=== PATIENT | female | born 1960 | race Caucasian/White ===

== ENCOUNTER 2016-09-04 04:59 | Emergency (ER) | payer MEDICAID ==
[2016-09-04 05:14] VITALS: TEMP 98.9
[2016-09-04] MEDS ORDERED: AZITHROMYCIN 500 MG TAB PO STA (05:26)
[2016-09-04] MEDS ORDERED: BENZONATATE 100 MG CAP PO STA (05:26)
--- NOTE | 2016-09-04 05:29 | ED ---
General Adult HPI - General Chief complaint: Upper Respiratory Infection Stated complaint: coughing Time Seen by Provider: 09/04/16 05:10 Source: patient, RN notes reviewed Mode of arrival: ambulatory Limitations: no limitations - History of Present Illness Initial comments: Is a 55-year-old female this is a 55-year-old female who comes in complaining of a cough for the last 4 days. Patient states she's also had quite a sore throat since she's been coughing. Patient states the sore throat gets worse in the morning when she wakes up and gets better throughout the day. Patient states she has felt warm but has not taken her temperature. Patient denies any chills. Patient denies any shortness of breath or difficulty breathing. Patient states when she coughs it hurts her ribs. Patient denies any chest pain while coughing. Patient denies any abdominal pain patient denies nausea vomiting diarrhea. Patient denies headache patient denies numbness weakness. Patient denies any lightheadedness or dizziness. - Related Data Home Medications Medication Instructions Recorded Confirmed Acetaminophen Tab [Tylenol Tab] 500 mg PO Q4H PRN 09/04/16 09/04/16 Previous Rx's Medication Instructions Recorded Azithromycin [Zithromax Tri-Narendra] 500 mg PO DAILY #3 tab 09/04/16 Benzonatate [Tessalon Perles] 200 mg PO TID #12 capsule 09/04/16 Allergies Allergy/AdvReac Type Severity Reaction Status Date / Time pollen extracts Allergy Unknown Verified 09/04/16 05:15 Review of Systems ROS Statement: Those systems with pertinent positive or pertinent negative responses have been documented in the HPI. ROS Other: All systems not noted in ROS Statement are negative. Past Medical History Past Medical History: Hypertension History of Any Multi-Drug Resistant Organisms: None Reported Past Surgical History: Hysterectomy Past Psychological History: No Psychological Hx Reported Smoking Status: Former smoker Past Alcohol Use History: None Reported Past Drug Use History: None Reported General Exam - General Exam Comments Initial Comments: GENERAL: Patient is well-developed and well-nourished. Patient is nontoxic and well- hydrated and is in mild distress. ENT: Neck is soft and supple. No significant lymphadenopathy is noted. Oropharynx is clear. Moist mucous membranes. Neck has full range of motion without eliciting any pain. EYES: The sclera were anicteric and conjunctiva were pink and moist. Extraocular movements were intact and pupils were equal round and reactive to light. Eyelids were unremarkable. PULMONARY: Unlabored respirations. Good breath sounds bilaterally. No audible rales rhonchi or wheezing was noted. CARDIOVASCULAR: There is a regular rate and rhythm without any murmurs gallops or rubs. ABDOMEN: Soft and nontender with normal bowel sounds. No palpable organomegaly was noted. There is no palpable pulsatile mass. SKIN: Skin is clear with no lesions or rashes and otherwise unremarkable. NEUROLOGIC: Patient is alert and oriented x3. Cranial nerves II through XII are grossly intact. Motor and sensory are also intact. Normal speech, volume and content. Symmetrical smile. MUSCULOSKELETAL: Normal extremities with adequate strength and full range of motion. No lower extremity swelling or edema. No calf tenderness. LYMPHATICS: No significant lymphadenopathy is noted PSYCHIATRIC: Normal psychiatric evaluation. Limitations: no limitations Course Vital Signs 09/04/16 05:09 Temperature 98.9 F Pulse Rate 86 Respiratory 18 Rate Blood Pressure 188/90 O2 Sat by Pulse 96 Oximetry Disposition Clinical Impression: Acute bronchitis Disposition: HOME SELF-CARE Condition: Good Instructions: Acute Bronchitis (ED) Prescriptions: Azithromycin [Zithromax Tri-Narendra] 500 mg PO DAILY #3 tab Benzonatate [Tessalon Perles] 200 mg PO TID #12 capsule Time of Disposition: 05:28
[2016-09-04 05:44] VITALS: BP 158/79; PULSE 77; RESP 16
== END 2016-09-04 05:43 | disposition home or self-care (01) ==
LOC: EC 04:59
DX: J20.9 Acute bronchitis, unspecified (principal); Z91.048 Other nonmedicinal substance allergy status; Z87.891 Personal history of nicotine dependence
CPT/HCPCS: 99283

== ENCOUNTER 2016-10-22 07:44 | Day surgery (SDC) | payer MEDICAID ==
[2016-10-17 15:42] VITALS: BMI 30.1
[~2016-10-22 07:44] MED LIST: LACTATED RINGERS 1,000 ML IV SCH
[2016-10-22 08:08] VITALS: PULSE 59; RESP 16; TEMP 97.8
[2016-10-22 08:09] VITALS: BP 228/100
--- NOTE | 2016-10-22 13:57 | P.PN ---
Progress Note - Text Patient's blood pressure in preop area was 243 systolic and 238 on recheck on other arm. As procedure is not emergent, will cancel procedure for today and have patient follow up with PCP for further evaluation and BP management prior to re-attempting.
== END 2016-10-22 08:26 | disposition home or self-care (01) ==
LOC: ORPAIN 07:44
PROVIDERS: ATTEND Anesthesiology
DX: H47.10 Unspecified papilledema (principal); R03.0 Elevated blood-pressure reading, without diagnosis of hypertension; Z53.8 Procedure and treatment not carried out for other reasons

== ENCOUNTER → 2016-10-24 | Outpatient (CLI) | payer MEDICAID ==
[2016-10-24 10:39] LABS: Blood Urea Nitrogen 19 mg/dL (7-17); Non-African American GFR(MDRD) >60 (>60 ml/min/1.73 sqM)
--- NOTE | 2016-10-24 21:06 | MR ---
EXAMINATION TYPE: MR brain wo/w con DATE OF EXAM: 10/24/2016 4:22 PM COMPARISON: NONE HISTORY: 56-year-old female, unspecified papilledema, blurred vision, vision disturbance TECHNIQUE: Multiplanar, multisequence images of the brain and brainstem were acquired before and aft er administration of 14 mL IV MultiHance. Diffusion weighted imaging is performed. FINDINGS: No evidence for acute infarction, hemorrhage, mass, mass effect, midline shift, herniation, effacemen t of basal cisterns, or extra-axial fluid collection. The ventricles and sulci are age-appropriate. Major intracranial flow voids are intact. T2/FLAIR weighted sequences show minimal to mild scattered burden of right white matter change in the subcortical and deep white matter of both cerebral hemispheres and brain approximately 10-15 foci. Midline structures demonstrate normal morphology. There is no empty sella. The craniocervical junctio n is normal. Post contrast images demonstrate no evidence of mass. Dural venous sinuses are patent. There is no ab normal meningeal enhancement. Mild mucosal thickening in the ethmoid air cells. Globes are intact. There is no appreciable bulging or flattening of the optic nerve head. IMPRESSION: 1. No acute intracranial abnormality seen. Minimal to mild scattered burden of T2 bright white matter change, nonspecific, likely related to chronic small vessel ischemic disease. 2. No appreciable flattening or bulging of the optic nerve head on MRI. 3. No specific finding to help explain clinical papilledema. 4. Mild chronic ethmoid sinus disease.
== END | disposition home or self-care (01) ==
LOC: RADMRIMAIN 15:33
PROVIDERS: ATTEND Ophthalmology
DX: R90.82 White matter disease, unspecified (principal); H47.10 Unspecified papilledema; H53.9 Unspecified visual disturbance; H53.8 Other visual disturbances; R93.0 Abnormal findings on diagnostic imaging of skull and head, not elsewhere classified
CPT/HCPCS: 82565; 84520; 70553; 36415; A9577

== ENCOUNTER 2017-11-22 07:52 | Day surgery (SDC) | payer MEDICAID ==
[2017-11-22 08:46] VITALS: TEMP 97.6
--- NOTE | 2017-11-22 11:19 | FL ---
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 Informed consent was obtained and all the patient's questions were answered. Timeout was performed. The L2-3 level was localized fluoroscopically. The standard sterile technique was utilized as well as appropriate local anesthesia with 1% lidocaine . Spinal needle was introduced into the thecal sac and opening and closing pressures were obtained. Ope wilder pressure is 16 cm with closing pressure of 12 cm. 2 cc of CSF was obtained x4 tubes for a total of 8 cc. The patient tolerated the procedure well and left the department in stable condition. IMPRESSION: Successful lumbar puncture.
[2017-11-22 12:07] VITALS: RESP 18
[2017-11-22 12:10] VITALS: BP 149/75; PULSE 68
[2017-11-22 12:22] LABS: Glucose,CSF 60 mg/dL (40-70); Total Protein,CSF 32 mg/dL (12-60)
[2017-11-22 12:53] LABS: Appearance,CSF Clear; CSF Tube Number 4; Nucleated Cells, CSF 0 u/L (0-5); Red Blood Cell,CSF 130 u/L (0-10)
[2017-11-22 12:54] LABS: Red Blood Cell, CSF Crenated 90 %; Red Blood Cell, CSF Fresh 10 %
[2017-11-25 14:32] LABS: IgG - CSF 1.9 mg/dL (0.0 - 3.4); IgG/Albumin Index (CSF) 0.48 (0.00 - 0.77)
[2017-11-26 14:23] LABS: VDRL, Qualitative CSF Nonreactive (Nonreactive)
== END 2017-11-22 12:00 | disposition home or self-care (01) ==
LOC: RADPROMAIN 07:52 → EDSTATUS 08:00 → RADPROMAIN 12:00
PROVIDERS: ATTEND Ophthalmology
DX: G44.221 Chronic tension-type headache, intractable (principal); H47.333 Pseudopapilledema of optic disc, bilateral; H53.009 Unspecified amblyopia, unspecified eye
CPT/HCPCS: 86592; 84157; 82945; 82040; 82042; 82784; 83916; 82164; 89050; 62270; J2001

== ENCOUNTER → 2021-11-02 | Outpatient (CLI) | payer BC ==
--- NOTE | 2021-11-02 12:12 | US ---
EXAMINATION TYPE: US liver DATE OF EXAM: 11/02/2021 COMPARISON: NONE CLINICAL HISTORY: 61-year-old female R94.5 ABN LIVER FUNCTION TEST. Technique: Multiple sonographic i mages of the right upper quadrant were obtained. FINDINGS: EXAM MEASUREMENTS: Liver Length: 16.1 cm Gallbladder Wall: 0.1 cm CBD: 0.8 cm Right Kidney: 8.9 x 4.3 x 5.2 cm Pancreas: visualized portions wnl, suboptimal visualization of the pancreatic tail due to shadowing from bowel gas. Liver: mildly heterogeneous with some patchy areas of increased echogenicity, likely mild fatty infi ltration. Gallbladder: wnl Evidence for sonographic Lancaster's sign: no CBD: dilated Right Kidney: wnl IMPRESSION: 1. Bile duct mildly dilated at 8 mm. Correlate with alkaline phosphatase and bilirubin levels to excl ude early biliary obstruction. ERCP or MRCP for further evaluation if clinically indicated. 2. No gallstones or evidence for acute cholecystitis. 3. Mild heterogeneity of the liver. There could be some underlying fatty infiltration.
== END | disposition home or self-care (01) ==
LOC: RADUSWWP 08:12
PROVIDERS: ATTEND Internal Medicine
DX: R94.5 Abnormal results of liver function studies (principal)
CPT/HCPCS: 76705

== ENCOUNTER → 2022-03-09 | Outpatient (CLI) | payer BC ==
--- NOTE | 2022-03-12 08:20 | MM ---
Reason for Exam: Screening (asymptomatic). Last mammogram was performed 16 year(s) and 9 month(s) ago. Patient History: Menarche at age 16. First Full-Term at age 33. Late child-bearing (after 30). Postmenopausal. Risk Values: Nasreen 5 year model risk: 2.0%. NCI Lifetime model risk: 8.4%. Prior Study Comparison: No prior studies available for comparison. Tissue Density: The breast tissue is heterogeneously dense. This may lower the sensitivity of mammography. Findings: Analyzed By CAD. There is no suspicious group of microcalcifications or suspicious mass in either breast. Benign calcifications bilaterally. Overall Assessment: Benign, BI-RAD 2 Management: Screening Mammogram of both breasts in 1 year. A clinical breast exam by your physician is recommended on an annual basis and results should be correlated with mammographic findings. Electronically signed and approved by: Dave Luna D.O.
== END | disposition home or self-care (01) ==
LOC: RADMAMWWP 14:38
PROVIDERS: ATTEND Internal Medicine
DX: Z12.31 Encounter for screening mammogram for malignant neoplasm of breast (principal)
CPT/HCPCS: 77067

== ENCOUNTER → 2025-02-25 | Outpatient (CLI) | payer MEDICARE ==
--- NOTE | 2025-02-26 00:09 | US ---
EXAMINATION TYPE: US abdomen complete DATE OF EXAM: 02/25/2025 COMPARISON: US 2021 CLINICAL INDICATION: Female, 64 years old with history of R74.8 ABN LIVER EZYMES; TECHNIQUE: Grayscale and color Doppler imaging of the abdomen was performed. FINDINGS: EXAM MEASUREMENTS: Liver Length: 16.1 cm Gallbladder Wall: 0.2 cm CBD: 0.6 cm Spleen: 10.9 cm Right Kidney: 9.5 x 4.5 x 4.6 cm Left Kidney: 11.3 x 4.9 x 4.8 cm Pancreas: visualized portions wnl, limited by overlying midline bowel gas Liver: attenuating, mildly heterogeneous Gallbladder: wnl Evidence for sonographic Lancaster's sign: no CBD: borderline dilated Spleen: wnl Right Kidney: wnl Left Kidney: 2.3cm cystic area medial inferior pole Upper IVC: wnl Abd Aorta: proximal portion mildly ectatic, mid and distal portions and proximal iliac arteries obsc ured by overlying midline bowel gas IMPRESSION: 1. Left renal cyst. 2. Minimal ectasia of the visualized portion of the abdominal aorta. Greatest AP diameter is 2.3 cm [facility] Maya Louise, , 02/26/2025 12:06 AM
== END | disposition home or self-care (01) ==
LOC: RADUSWWP 08:45
PROVIDERS: ATTEND Student in an Organized Health Care Education/Training Program
DX: Z13.6 Encounter for screening for cardiovascular disorders (principal); R74.8 Abnormal levels of other serum enzymes; N28.1 Cyst of kidney, acquired; I77.811 Abdominal aortic ectasia
CPT/HCPCS: 76700